=== PATIENT | male | born 1985 | race Caucasian/White ===

== ENCOUNTER 2017-05-05 04:49 | Emergency (ER) | payer OTHER ==
[2017-05-05 04:54] VITALS: RESP 16; TEMP 97.7
[2017-05-05] MEDS ORDERED: FAMOTIDINE 20 MG TAB PO ONE (05:06)
[2017-05-05] MEDS ORDERED: predniSONE 20 MG TAB PO ONE (05:06)
[2017-05-05 06:00] VITALS: BP 139/92; PULSE 61; O2SAT 93
--- NOTE | 2017-05-05 06:16 | EDPHY ---
H & P Stated Complaint: Allergic reation Time Seen by Provider: 05/05/17 05:00 HPI/ROS: HPI The patient presents with concern for allergic reaction. 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 As he then felt nasal congestion. His hands then felt warm as with tingling. He then noticed that his eyelids were swelling. He went to the store and took Benadryl 50 mg. His symptoms did not improve, so he came to the emergency department. His he has no prior history of similar. He has not eaten any new or unusual foods. He has not had any new exposures and was not working with any chemicals at all today. He denies any new soaps or detergents. By he does not have any vomiting, difficulty swallowing, shortness of breath, wheezing. REVIEW OF SYSTEMS Constitutional: No fever, no chills. Eyes: No discharge. ENT: No sore throat. Cardiovascular: No chest pain, no palpitations. Respiratory: No cough, no shortness of breath. Gastrointestinal: No abdominal pain, no vomiting. Genitourinary: No hematuria. Musculoskeletal: No back pain. Skin: Positive for rashes. Neurological: No headache. PMHx: History of seasonal allergies PHYSICAL General Appearance: Alert, no distress Eyes: Pupils equal and round no pallor or injection, upper eyelids are slightly edematous bilaterally ENT, Mouth: Mucous membranes moist, posterior pharynx is normal without any edema Respiratory: There are no retractions, lungs are clear to auscultation, no wheezing Cardiovascular: Regular rate and rhythm Gastrointestinal: Abdomen is soft and non-tender, no masses, bowel sounds normal Neurological: A&O, moves all extremities Skin: Warm and dry, hands are diffusely edematous and erythematous Musculoskeletal: Neck is supple non tender Extremities: symmetrical, full range of motion Psychiatric: Patient is oriented X 3, there is no agitation Source: Patient Exam Limitations: No limitations - Personal History Current Tetanus/Diphtheria Vaccine: Unsure Current Tetanus Diphtheria and Acellular Pertussis (TDAP): Unsure - Medical/Surgical History Hx Asthma: No Hx Chronic Respiratory Disease: No Hx Diabetes: No Hx Cardiac Disease: No Hx Renal Disease: No Hx Cirrhosis: No Hx Alcoholism: No Hx HIV/AIDS: No Hx Splenectomy or Spleen Trauma: No Other PMH: anxiety, GERD - Social History Smoking Status: Never smoked Constitutional: Initial Vital Signs Temperature (C) 36.5 C 05/05/17 04:51 Heart Rate 86 05/05/17 04:51 Respiratory Rate 16 05/05/17 04:51 Blood Pressure 133/100 H 05/05/17 04:51 O2 Sat (%) 95 05/05/17 04:51 O2 Delivery Mode Room Air Allergies/Adverse Reactions: No Known Allergies Allergy (Unverified 05/05/17 04:53) Medical Decision Making Differential Diagnosis: 31-year-old male presents with what sounds to be allergic reaction, source of this is unclear. He does have signs of urticaria, eyelid swelling, nasal congestion. This is most consistent with food allergy, however patient says he has not eaten any new foods nor anything with nuts or shellfish in it. As he could have an allergic response to some sort of other allergen he was exposed 2. URI is also a consideration. Plan for treatment here with H2 pritesh and prednisone. I will reassess him. The patient was observed for about 1.5 hr. He had no worsening of his symptoms. It is unclear what his allergic reaction is caused by. However given he is doing well, he is suitable for discharge. I will encourage him to take Benadryl every 6 hr until complete resolution of his symptoms. I have also given him follow-up with an reflesher. - Data Points Medications Given: Discontinued Medications Famotidine (Pepcid) 40 mg PO EDNOW ONE Stop: 05/05/17 05:07 Last Admin: 05/05/17 05:13 Dose: 40 mg Prednisone (Prednisone) 60 mg PO EDNOW ONE Stop: 05/05/17 05:07 Last Admin: 05/05/17 05:13 Dose: 60 mg Departure - Departure Disposition: Home, Routine, Self-Care Clinical Impression: Allergic reaction Qualifiers: Encounter type: initial encounter Qualified Code(s): T78.40XA - Allergy, unspecified, initial encounter Condition: Good Instructions: General Allergic Reaction (ED) Additional Instructions: Please monitor your symptoms at home. If you have any continued symptoms, I recommend you take Benadryl 25 mg every 6 hr until your better. Please return to the emergency department if worse in any way. Referrals: Edilma Acosta MD [Medical Doctor] - As per Instructions
== END 2017-05-05 06:25 | disposition home or self-care (01) ==
DX: T78.40XA Allergy, unspecified, initial encounter (principal)